=== PATIENT | male | born 1980 | race Caucasian/White ===

== ENCOUNTER 2020-01-23 00:33 | Inpatient (IN) ==
--- NOTE | 2020-01-23 00:54 | ERNOTE ---
Abdominal HPI - General Chief Complaint: Abdominal Pain Time Seen by Provider: 01/23/20 00:46 Source: patient Exam Limitations: no limitations - Immun/Allergies/Home Medications Immunizatons: IMMUNIZATION HX Immunizations Up to Date Yes Allergies/Adverse Reactions: Allergies No Known Allergies Allergy (Verified 01/23/20 00:41) Home Medications: HOME MEDICATIONS dimethyl fumarate 240 mg capsule,delayed release 240 mg PO BID 05/17/18 [Last Taken Unknown] loratadine 10 mg capsule 10 mg PO DAILY 05/17/18 [Last Taken Unknown] - History of Present Illness Narrative: Patient states he had some fullness and bloating throughout the day today. He is tried to move his bowels and only had very small BMs with some blood streaking on top of the stool. He tried taking some Tums which did not help. Timing: getting worse Quality: moderate, fullness Activities at Onset: none Associated Symptoms: Present: swelling/mass in abdomen Review of Systems - Review of Systems Constitutional: Absent: recent illness, fever, chills Respiratory: Absent: shortness of breath, cough Cardiology: Absent: chest pain, palpitations Gastrointestinal/Abdominal: Present: See HPI. Absent: nausea, vomiting Genitourinary: Absent: frequency, dysuria Musculoskeletal: Present: back pain Skin: Absent: rash Neurological: Absent: headache, dizziness/light-headedness Endocrine: Present: excessive sweating Medical History (Last Reviewed 01/23/20 @ 00:52 by Jeremi Awad DO) Refused influenza vaccine (Acute) Onset Date: ~11/25/18 Kidney stones (Acute) Onset Date: Unknown Double vision (Acute) Onset Date: 02/08/13 Arm pain, left (Acute) Onset Date: 01/17/13 WITH RADICULOPATHY Abdominal pain (Acute) Onset Date: 11/08/13 RUQ Multiple sclerosis (Chronic) Surgical History: Surgical History (Last Reviewed 01/23/20 @ 00:52 by Jeremi Awad DO) S/P tonsillectomy Onset Date: 1994 Family History: Family History (Last Reviewed 01/23/20 @ 00:52 by Jeremi Awad DO) Mother Alive and well Father Hypertension Grandfather Prostate cancer Social History: (Last Reviewed 01/23/20 @ 00:52 by Jeremi Awad DO) Social History: penitentiary: No Marital status: household members: spouse, children current occupational status: employed current occupation: [employer]: No Tobacco: Smoking Status: Current some day smoker Smoking cigarettes per day: 20 Alcohol: alcohol intake: current alcohol intake frequency: holiday/special occasion Substance Use: substance use type: does not use Dietary Habits: caffeine: Yes Type: carbonated beverages Exercise: frequency: daily Physical Exam - Physical Exam General Appearance: Present: wd/wn, alert, no apparent distress Head Exam: Present: normal inspection, no evidence of injury Neck: Present: normal inspection, nontender, supple Respiratory: Present: no respiratory distress, no accessory muscle use Gastrointestinal/Abdominal: Present: soft, tenderness - upper abdomen central. Absent: distended, guarding, rebound Back Exam: Present: normal range of motion, other - paraspinal tenderness lower thoracics. Neurological Exam: Present: alert, oriented, normal mood/affect Skin Exam: Present: normal color, warm/dry Progress - Results and Orders Patient's Lab Results:: I have reviewed the patient's lab results. Results and Orders: Laboratory Tests 01/23/20 01/23/20 01/23/20 00:51 01:00 01:00 WBC 14.2 H Hgb 15.0 Hct 43.5 Plt Count 233 Neutrophils % 77.3 H Sodium 140 Potassium 4.5 Chloride 102 BUN 12 Creatinine 0.68 Calcium 9.4 Total Bilirubin 0.5 AST 31 ALT 60 Amylase Lipase Urine Color Pale yellow Urine Appearance Clear Urine pH 7.0 Ur Specific [place] 1.015 Urine Ketones Negative Urine Blood 5 H Urine Nitrate Negative Ur Leukocyte Esterase Negative Amorphous Sediment Few - 1+ Urine Bacteria Trace Urine Culture Comments No culture indicated 01/23/20 01:00 WBC Hgb Hct Plt Count Neutrophils % Sodium Potassium Chloride BUN Creatinine Calcium Total Bilirubin AST ALT Amylase 267 H Lipase 1740 H Urine Color Urine Appearance Urine pH Ur Specific [place] Urine Ketones Urine Blood Urine Nitrate Ur Leukocyte Esterase Amorphous Sediment Urine Bacteria Urine Culture Comments - Vital Signs Patient's Vital Signs:: I have reviewed the patient's vital signs. Vital Signs: Vital Signs 01/23/20 00:37 Temperature 37 C Pulse Rate 77 Respiratory Rate 16 Blood Pressure 155/102 H O2 Sat by Pulse Oximetry 96 - CT/Ultrasound CT/Ultrasound Narrative: CT abdomen pelvis with IV and oral contrast Mild to moderate ill-defined peripancreatic edema consistent with acute pancreatitis. Moderate amount of stool in the colon. Normal appendix. No bowel obstruction. - Progress/Reassessment Chief Complaint: Abdominal Pain Progress:: Improved Progress Note-Subjective: 01/23/20 04:[address] Colvin she agrees with admission for IV fluids IV pain meds and serial pancreatic enzymes. Departure Clinical Impression: Pancreatitis, acute Qualifiers: Pancreatitis type: unspecified pancreatitis type Acute pancreatitis complication: unspecified Qualified Code(s): K85.90 - Acute pancreatitis without necrosis or infection, unspecified - Departure Disposition: Still a patient Condition: Stable
[2020-01-23 00:58] LABS: Urine Amorphous Sediment Few - 1+ (NONE-FEW); Urine Appearance Clear (CLEAR); Urine Bacteria TRACE; Urine Bilirubin Negative (NEGATIVE); Urine Blood 5 /ul (NEGATIVE); Urine Color Pale Yellow; Urine Ketone Negative (NEGATIVE); Urine Nitrite Negative (NEGATIVE); Urine Protein Negative (NEGATIVE); Urine RBC None Seen /hpf (0-5); Urine Specific Gravity 1.015 SP.GR. (1.005-1.030); Urine Urobilinogen Normal (NORMAL); Urine WBC None Seen /hpf (0-5)
[2020-01-23 01:07] LABS: Hematocrit 43.5 % (42.0-52.0); Mean Cell Volume 90.8 fl (78-100); Mean Corpuscular Hemoglobin 31.3 pg (27-31); Mean Corpuscular Hgb Conc 34.5 g/dl (32-36); Mean Platelet Volume 9.7 fl (8-11.3); Neutrophil % 77.3 % (42-75.0); Platelet Count 233 K/mm3 (150-450); Red Blood Count 4.79 M/mm3 (4.7-6.0); Red Cell Distribution Width 12.5 % (11.5-14.0); White Blood Count 14.2 K/mm3 (4.0-10.5)
[2020-01-23 01:21] LABS: Albumin * 3.9 gm/dl (3.4-5.0); Anion Gap 14.6 mmol/L (6.8-13.8); BUN/Creatinine Ratio 17.6 (9.0-21.6); Bilirubin, Total 0.5 mg/dL (0.0-1.1); Ca. Corrected For Albumin 9.2 mg/dL (8.4-10.2); Calcium * 9.4 mg/dL (7.9-10.9); Carbon Dioxide 27.9 mmol/L (24-32.6); Potassium 4.5 mmol/L (3.4-4.6); Total Protein 8.3 gm/dL (6.2-8.2)
[2020-01-23] MEDS ORDERED: DIATRIZOATE MEGLUMINE, SODIUM 30 ML BTL PO ONE (01:25)
[2020-01-23] MEDS ORDERED: DIATRIZOATE MEGLUMINE, SODIUM 30 ML BTL ONE (01:27)
[2020-01-23] MEDS ORDERED: KETOROLAC TROMETHAMINE 30 MG/ML VIAL IV ONE (02:52)
[2020-01-23 03:51] LABS: Amylase * 267 U/L (25-115)
[2020-01-23 03:52] LABS: Lipase 1740 U/L (73-393)
[2020-01-23] MEDS ORDERED: ONDANSETRON HCL/PF 2 MG/ML VIAL IV PRN (04:38)
[2020-01-23] MEDS: NORMAL SALINE 1,000 ML IV PRN ×3 (05:04→21:31)
[2020-01-23] MEDS: MORPHINE SULFATE 4 MG/ML SYRG IV PRN ×2 (05:06→06:57)
[2020-01-23] MEDS ORDERED: MORPHINE SULFATE 2 MG/ML DISP.SYRIN IV PRN (07:45)
--- NOTE | 2020-01-23 08:02 | HP ---
Chief Complaint - Chief Complaint Date of Service: 01/23/20 Time of Service: 08:02 Chief Complaint: abdominal pain History of Present Illness: Patient with past medical history of MS presents with abdominal pain and bloating present since yesterday morning. He has been somewhat nauseated, denies vomiting. He is also been constipated this week. Denies diarrhea. Had a bit of an elevated temp up to 99.6. He has been on Tecfidera for his MS for approximately 6-7 years, which manages his MS well. He has not had a flare in several years. He had similar abdominal pain about a month ago, but it was mild and he did not seek medical attention. Work-up in the ER revealed pancreatitis, with an elevated lipase of 1740, and signs of pancreatitis on CT abdomen. White blood cell count mildly elevated at 14.2. He has been afebrile, and the only abnormality of his vitals is mildly high blood pressure, of 155/102 initially in the ED. Denies chest pain, shortness of breath, dysuria, skin ulcer. Medical History (Last Reviewed 01/23/20 @ 00:52 by Jeremi Awad DO) Refused influenza vaccine (Acute) Onset Date: ~11/25/18 Kidney stones (Acute) Onset Date: Unknown Double vision (Acute) Onset Date: 02/08/13 Arm pain, left (Acute) Onset Date: 01/17/13 WITH RADICULOPATHY Abdominal pain (Acute) Onset Date: 11/08/13 RUQ Multiple sclerosis (Chronic) Surgical History: Surgical History (Last Reviewed 01/23/20 @ 00:52 by Jeremi Awad DO) S/P tonsillectomy Onset Date: 1994 Family History: Family History (Last Reviewed 01/23/20 @ 00:52 by Jeremi Awad DO) Mother Alive and well Father Hypertension Grandfather Prostate cancer Social History: (Last Reviewed 01/23/20 @ 00:52 by Jeremi Awad DO) Social History: correction: No Marital status: household members: spouse, children current occupational status: employed current occupation: [employer]: No Tobacco: Smoking Status: Current some day smoker Smoking cigarettes per day: 20 Alcohol: alcohol intake: current alcohol intake frequency: holiday/special occasion Substance Use: substance use type: does not use Dietary Habits: caffeine: Yes Type: carbonated beverages Exercise: frequency: daily Review Of Systems (GEN) - Review of Systems Generalized/Overall Review: Present: Weakness. Absent: Fever Respiratory: Absent: Cough, Shortness of Breath Cardiac: Absent: Chest Pain, Edema Abdominal: Present: Nausea, Abdominal Pain, Constipation. Absent: Vomiting, Diarrhea Genitourinary: Present: No Symptoms Reported Musculoskeletal: Present: No Symptoms Reported Neurological: Present: No Symptoms Reported Skin: Present: No Symptoms Reported Immunizations: IMMUNIZATION HX Immunizations Up to Date Yes Allergies/Adverse Reactions: Allergies Allergy/AdvReac Type Severity Reaction Status Date / Time No Known Allergies Allergy Verified 01/23/20 00:41 Home Medications: HOME MEDICATIONS dimethyl fumarate 240 mg capsule,delayed release 240 mg PO BID 05/17/18 [Last Taken Unknown] loratadine 10 mg capsule 10 mg PO DAILY 05/17/18 [Last Taken Unknown] Cholecalciferol [Vitamin D] unit PO BID 01/23/20 [Last Taken Unknown] Zinc mg PO DAILY 01/23/20 [Last Taken Unknown] Exam - Exam Vital Signs: Vital Signs - Last Taken Temp 37.2 C 01/23/20 06:34 Pulse 62 01/23/20 06:34 Resp 17 01/23/20 06:34 BP 141/59 H 01/23/20 06:34 Pulse Ox 97 01/23/20 06:34 Constitutional: Present: Alert, Cooperative, Mild distress - Appears uncomfortable, Young Respiratory: Present: lungs clear, normal breath sounds Cardiovascular/Chest: Present: regular rate, rhythm Abdomen: Present: Normal bowel sounds, tender Extremity: Absent: lower extremity edema Appearance: Present: appropriate appearance Eye contact: Present: cooperative, good eye contact Diagnostic Studies: Abnormal Lab Results 01/23/20 01/23/20 01/23/20 Range/Units 00:51 01:00 01:00 WBC 14.2 H (4.0-10.5) K/mm3 MCH 31.3 H (27-31) pg Neutrophils % 77.3 H (42-75.0) % Lymphocytes % 11.8 L (20-51) % Neutrophils # 11.0 H (1.3-6.0) K/mm3 Monocytes # 1.3 H (0.0-1.0) k/mm3 Anion Gap 14.6 H (6.8-13.8) mmol/L Est GFR (Non-Af Amer) 137 H D (60-130) mL/min Random Glucose 119 H (70-110) mg/dL Total Protein 8.3 H (6.2-8.2) gm/dL Amylase (25-115) U/L Lipase (73-393) U/L Urine Blood 5 H (NEGATIVE) /ul 01/23/20 Range/Units 01:00 WBC (4.0-10.5) K/mm3 MCH (27-31) pg Neutrophils % (42-75.0) % Lymphocytes % (20-51) % Neutrophils # (1.3-6.0) K/mm3 Monocytes # (0.0-1.0) k/mm3 Anion Gap (6.8-13.8) mmol/L Est GFR (Non-Af Amer) (60-130) mL/min Random Glucose (70-110) mg/dL Total Protein (6.2-8.2) gm/dL Amylase 267 H (25-115) U/L Lipase 1740 H (73-393) U/L Urine Blood (NEGATIVE) /ul Laboratory Results WBC 14.2 K/mm3 (4.0-10.5) H 01/23/20 01:00 RBC 4.79 M/mm3 (4.7-6.0) 01/23/20 01:00 Hgb 15.0 gm/dL (13.5-18.0) 01/23/20 01:00 Hct 43.5 % (42.0-52.0) 01/23/20 01:00 MCV 90.8 fl (78-100) 01/23/20 01:00 MCH 31.3 pg (27-31) H 01/23/20 01:00 MCHC 34.5 g/dl (32-36) 01/23/20 01:00 RDW 12.5 % (11.5-14.0) 01/23/20 01:00 Plt Count 233 K/mm3 (150-450) 01/23/20 01:00 MPV 9.7 fl (8-11.3) 01/23/20 01:00 Immature Gran % (Auto) 0.20 % (0.001-0.429) 01/23/20 01:00 Immature Gran # (Auto) 0.03 K/mm3 (0.000-0.0310) 01/23/20 01:00 Neutrophils % 77.3 % (42-75.0) H 01/23/20 01:00 Lymphocytes % 11.8 % (20-51) L 01/23/20 01:00 Monocytes % 9.0 % (0.0-9) 01/23/20 01:00 Eosinophils % 1.5 % (0.0-3.0) 01/23/20 01:00 Basophils % 0.2 % (0.0-1.0) 01/23/20 01:00 Nucleated RBC % 0.0 k/mm3 (0-1) 01/23/20 01:00 Neutrophils # 11.0 K/mm3 (1.3-6.0) H 01/23/20 01:00 Lymphocytes # 1.68 k/mm3 (1.5-3.5) 01/23/20 01:00 Monocytes # 1.3 k/mm3 (0.0-1.0) H 01/23/20 01:00 Eosinophils # 0.2 k/mm3 (0.0-0.7) 01/23/20 01:00 Absolute Basophils 0.0 k/mm3 (0.0-0.1) 01/23/20 01:00 Sodium 140 mmol/L (132-142) 01/23/20 01:00 Plasma Sodium 140 mmol/L (130-142) 01/23/20 01:00 Potassium 4.5 mmol/L (3.4-4.6) 01/23/20 01:00 Chloride 102 mmol/L (97-106) 01/23/20 01:00 Carbon Dioxide 27.9 mmol/L (24-32.6) 01/23/20 01:00 Anion Gap 14.6 mmol/L (6.8-13.8) H 01/23/20 01:00 BUN 12 mg/dL (6-23) 01/23/20 01:00 Creatinine 0.68 mg/dL (0.4-1.4) 01/23/20 01:00 Est GFR (Non-Af Amer) 137 mL/min (60-130) H D 01/23/20 01:00 BUN/Creatinine Ratio 17.6 (9.0-21.6) 01/23/20 01:00 Random Glucose 119 mg/dL (70-110) H 01/23/20 01:00 Calcium 9.4 mg/dL (7.9-10.9) 01/23/20 01:00 Calcium Adj for Albumin 9.2 mg/dL (8.4-10.2) 01/23/20 01:00 Total Bilirubin 0.5 mg/dL (0.0-1.1) 01/23/20 01:00 AST 31 U/L (0-48) 01/23/20 01:00 ALT 60 U/L (19-67) 01/23/20 01:00 Alkaline Phosphatase 65 U/L (50-170) 01/23/20 01:00 Total Protein 8.3 gm/dL (6.2-8.2) H 01/23/20 01:00 Albumin 3.9 gm/dl (3.4-5.0) 01/23/20 01:00 Amylase 267 U/L (25-115) H 01/23/20 01:00 Lipase 1740 U/L (73-393) H 01/23/20 01:00 Urine Color Pale yellow 01/23/20 00:51 Urine Appearance Clear (CLEAR) 01/23/20 00:51 Urine pH 7.0 pH (5.0-7.0) 01/23/20 00:51 Ur Specific [place] 1.015 SP.GR. (1.005-1.030) 01/23/20 00:51 Urine Protein Negative mg/dL (NEGATIVE) 01/23/20 00:51 Urine Glucose (UA) Negative mg/dL (NEGATIVE) 01/23/20 00:51 Urine Ketones Negative mg/dL (NEGATIVE) 01/23/20 00:51 Urine Blood 5 /ul (NEGATIVE) H 01/23/20 00:51 Urine Nitrate Negative (NEGATIVE) 01/23/20 00:51 Urine Bilirubin Negative mg/dl (NEGATIVE) 01/23/20 00:51 Urine Urobilinogen Normal EU/dl (NORMAL) 01/23/20 00:51 Ur Leukocyte Esterase Negative /ul (NEGATIVE) 01/23/20 00:51 Urine RBC None seen /hpf (0-5) 01/23/20 00:51 Urine WBC None seen /hpf (0-5) 01/23/20 00:51 Ur Epithelial Cells None seen /hpf (0-5) 01/23/20 00:51 Amorphous Sediment Few - 1+ (NONE-FEW) 01/23/20 00:51 Urine Bacteria Trace (NONE) 01/23/20 00:51 Urine Culture Comments No culture indicated 01/23/20 00:51 Assessment/Plan - Assessment/Plan (1) Pancreatitis, acute Assessment: With elevated lipase of 1740 and findings on the CT, will treat for acute pancreatitis. He denies alcohol use and AST, ALT, alk phos are normal. Source is likely to be medications. The only medicines he takes are Tecfidera, zinc which was recently started, cetirizine, vitamin D. The Tecfidera is the most likely source, however it has been managing his MS well. We will attempt to discuss recommendations with his neurologist. He is clearly uncomfortable on exam, and the morphine has not been controlling his pain. We will start Dilaudid, and try to reduce back to morphine tomorrow. He does feel hungry, so we will start clear liquid diet at noon today. No need to monitor serial enzymes unless he is not improving. Anticipate inpatient stay of at least 2 midnights. Problem: Acute Qualifiers: Pancreatitis type: unspecified pancreatitis type Acute pancreatitis complication: unspecified Qualified Code(s): K85.90 - Acute pancreatitis without necrosis or infection, unspecified (2) Multiple sclerosis Assessment: We will contact his neurologist and ask for recommendations regarding Tecfidera. Problem: Chronic
[2020-01-23] MEDS: HYDROmorphone HCL 1 MG/ML DISP.SYRIN IV PRN ×5 (08:32→23:01)
[2020-01-23] MEDS ORDERED: (Dimethyl Fumarate [Tecfidera] 240 MG) PO SCH (09:00)
[2020-01-24] MEDS: HYDROmorphone HCL 1 MG/ML DISP.SYRIN IV PRN (02:15)
[2020-01-24] MEDS: NORMAL SALINE 1,000 ML IV PRN ×2 (05:42→13:29)
[2020-01-24] MEDS ORDERED: HYDROcodone/ACETAMINOPHEN 1 EACH TABLET PO PRN (08:19)
--- NOTE | 2020-01-24 08:28 | PN ---
Subjective - Date and Time Seen Date: 01/24/20 Time: 08:10 Subjective Narrative: Patient reports improvement in his abdominal pain. He is tolerating a clear liquid diet fine. The Dilaudid helped him yesterday and overnight, and he feels like he is ready to switch to the morphine. His nurse reports mildly elevated temperatures, just under fever threshold. Objective - Review of Systems Generalized/Overall Review: Denies: Fever Respiratory: Denies: Cough, Shortness of Breath Cardiac: Denies: Chest Pain Abdominal: Reports: Abdominal Pain. Denies: Vomiting Genitourinary Symptoms: Reports: No Symptoms Reported Musculoskeletal Complaints: Reports: No Symptoms Reported Neurological: Reports: No Symptoms Reported - Vitals Vitals: Last Vital Signs Temp 37.8 C 01/24/20 06:26 Pulse 90 01/24/20 06:26 Resp 14 01/24/20 06:26 BP 134/73 01/24/20 06:26 Pulse Ox 95 01/24/20 06:26 - Exam Constitutional: Present: Cooperative - wakens for exam, No distress - appears more comfortable than yesterday Respiratory: Present: lungs clear, normal breath sounds Cardiovascular/Chest: Present: regular rate, rhythm Abdomen: Present: soft, tender Eye contact: Present: cooperative, good eye contact Assessment/Plan - Problems/Diagnosis (1) Pancreatitis, acute Problem: Acute Qualifiers: Pancreatitis type: unspecified pancreatitis type Acute pancreatitis complication: unspecified Qualified Code(s): K85.90 - Acute pancreatitis without necrosis or infection, unspecified Narrative: His symptoms are improving, so there is no need to recheck lipase levels. Will advance his diet and decrease pain medicine. Anticipate discharge tomorrow, but possibly later this evening if he does well and feels comfortable leaving. He denies alcohol use, ultrasound of the gallbladder was negative yesterday, no abnormalities on CMP to suggest gallbladder source. Most likely source is medications, however his medications were not typical meds to induce pancreatitis. He has had 2 flares of this abdominal pain in the last month however. We will hold his Tecfidera and have him see Dr. Bernal in 2 weeks. If his pancreatitis returns while off the Tecfidera, that is not the source. If he has no recurrence of the abdominal pain while off the Tecfidera, anticipate his neurologist may change agents for his MS. (2) Multiple sclerosis Problem: Chronic Narrative: The Tecfidera has been managing him well for 6 or 7 years. He has not had a flare in several years. Will defer management to neurology. Discussed with neurology yesterday, and he does not anticipate an MS flare if off Tecfidera for a couple weeks.
[2020-01-24] MEDS: ACETAMINOPHEN 325 MG TABLET PO PRN ×2 (08:30→17:25)
--- NOTE | 2020-01-25 07:21 | DS ---
(1) Pancreatitis, acute Problem: Resolved Qualifiers: Pancreatitis type: unspecified pancreatitis type Acute pancreatitis complication: unspecified Qualified Code(s): K85.90 - Acute pancreatitis without necrosis or infection, unspecified (2) Multiple sclerosis Problem: Chronic Date of Discharge:: 01/25/20 Hospital Course: Patient with past medical history of MS presents with abdominal pain and bloating present since the day prior to admission. He has been somewhat nauseated, denies vomiting. Denies diarrhea. Had a bit of an elevated temp up to 99.6. He has been on Tecfidera for his MS for approximately 6-7 years, which manages his MS well. He has not had a flare in several years. He had similar abdominal pain about a month ago, but it was mild and he did not seek medical attention. Work-up in the ER revealed pancreatitis, with an elevated lipase of 1740, and signs of pancreatitis on CT abdomen. White blood cell count mildly elevated at 14.2. He has been afebrile, and the only abnormality of his vitals is mildly high blood pressure, of 155/102 initially in the ED. He was admitted for pain control and IV fluids. He does not drink alcohol, and workup for his gallbladder was negative. He had significant pain during the first 24 hours of admission, managed with dilauded. His pain was controlled with po norco the final 24 hours of admission, which he only used once. He was able to tolerate a low fat diet. The only meds he takes is tecfidera, zinc, loratidine, and Vit D. Research did not reveal a strong correlation between tecfidera and pancreatitis, but without an alternate, this is the strongest possible source for his pancreatitis. Plan discussed with neurology, and will hold the tecfidera, and Dr. Bernal will see him in two weeks. He recommends checking liver function and pancreatic enzymes in one week, at follow up with his PCP. These have been ordered. He was given recommendations regarding following a low fat diet for the first few days after discharge. Procedures Performed: none Results and Findings: Lab Pending Results 01/23/20 00:51: Urine Color Pale yellow, Urine Appearance Clear, Urine pH 7.0, Ur Specific [place] 1.015, Urine Protein Negative, Urine Glucose (UA) Negative, Urine Ketones Negative, Urine Blood 5 H, Urine Nitrate Negative, Urine Bilirubin Negative, Urine Urobilinogen Normal, Ur Leukocyte Esterase Negative, Urine RBC None seen, Urine WBC None seen, Ur Epithelial Cells None seen, Amorphous Sediment Few - 1+, Urine Bacteria Trace, Urine Culture Comments No culture indicated 01/23/20 01:00: WBC 14.2 H, RBC 4.79, Hgb 15.0, Hct 43.5, MCV 90.8, MCH 31.3 H, MCHC 34.5, RDW 12.5, Plt Count 233, MPV 9.7, Immature Gran % (Auto) 0.20, Immature Gran # (Auto) 0.03, Neutrophils % 77.3 H, Lymphocytes % 11.8 L, Monocytes % 9.0, Eosinophils % 1.5, Basophils % 0.2, Nucleated RBC % 0.0, Neutrophils # 11.0 H, Lymphocytes # 1.68, Monocytes # 1.3 H, Eosinophils # 0.2, Absolute Basophils 0.0 01/23/20 01:00: Sodium 140, Plasma Sodium 140, Potassium 4.5, Chloride 102, Carbon Dioxide 27.9, Anion Gap 14.6 H, BUN 12, Creatinine 0.68, Est GFR (Non-Af Amer) 137 H D, BUN/Creatinine Ratio 17.6, Random Glucose 119 H, Calcium 9.4, Calcium Adj for Albumin 9.2, Total Bilirubin 0.5, AST 31, ALT 60, Alkaline Phosphatase 65, Total Protein 8.3 H, Albumin 3.9 01/23/20 01:00: Amylase 267 H, Lipase 1740 H Discharge Location: Home Disposition: Home self-care Condition: Good Discharge Activity: Activity as tolerated Discharge Diet: Low fat/chol Referrals: Arina Cope MD [Primary Care Provider] - One Week Magdy Bernal MD [Consulting Physician] - Two Weeks (Per conversation with Dr. Bernal) Prescriptions (Any new or edited meds): HYDROcodone/ACETAMINOPHEN [[place] 5-325] 1 ea PO Q6H PRN #5 tab PRN Reason: MODERATE PAIN Transmission Status: Sent to [id number] Complete Home Medications List: Complete Home Medication List: dimethyl fumarate 240 mg capsule,delayed release 240 mg PO BID 05/17/18 loratadine 10 mg capsule 10 mg PO DAILY 05/17/18 Cholecalciferol [Vitamin D] unit PO BID 01/23/20 Zinc mg PO DAILY 01/23/20 HYDROcodone/ACETAMINOPHEN [[place] 5-325] 1 ea PO Q6H PRN #5 tab 01/25/20 Forms: Patient Portal Registration
[2020-01-25 07:32] VITALS: BP 128/77
== END 2020-01-25 07:40 | disposition home or self-care (01) | DRG 440 ==
LOC: ER 00:33 → MS 04:10
PROVIDERS: ADMIT Family Medicine; ATTEND Family Medicine
CPT/HCPCS: 36415; 74019; 74020; 74177; 76705; 80053; 81001; 82150; 83690; 85025; 96374; 99284; 99285; Q9963; Q9967